=== PATIENT | female | born 1985 | race Caucasian/White ===

== ENCOUNTER → 2022-02-21 | Outpatient (CLI) | payer BC, OTHER ==
[~2022-02-21] MED LIST: AMOXIL500 MG PO; CIPROFLOXACIN500 MG PO; IBU-6600 MG PO; KEFLEX125 MG/5 M PO; LOMOCOT 0.025 M1 TAB PO; LOMOTIL 0.025 M1 TA1 PO; MACROBID100 M1 PO; MEDROL DOSEPAK4 MG PO; MOTRIN800 MG PO; PROVENTIL0.09 MG/AC IH; Phenergan25 MG PO; VICODIN 500 MG-1 TAB PO; ZITHROMAX Z PA250 MG PO; ZOFRAN ODT4 MG SL; ZOFRAN4 MG PO
== END | disposition home or self-care (01) ==
LOC: RAD 10:53
PROVIDERS: ATTEND Nurse Practitioner Family
DX: S99.911A Unspecified injury of right ankle, initial encounter (principal); X58.XXXA Exposure to other specified factors, initial encounter; Y93.89 Activity, other specified; Y92.89 Other specified places as the place of occurrence of the external cause; Y99.8 Other external cause status

== ENCOUNTER 2022-10-20 23:45 | Emergency (ER) | payer BC, OTHER ==
[~2022-10-20] VITALS: Ht 157.4 cm; Wt 97.5 kg
[2022-10-21] MEDS ORDERED: MONTELUKAST SOD10 MG PO
[2022-10-21] MEDS ORDERED: VENTOLIN 02.5 MG/3 M INH (00:01)
[2022-10-21] MEDS ORDERED: SLYND4 MG PO (00:01)
[2022-10-21] MEDS ORDERED: DULERA 100 MCG-13 GM INH (00:01)
[2022-10-21 00:54] LABS: BASO # 0.1 10*3/uL (0.0-0.1); BASO % 0.9 % (0.0-1.0); EOS # 0.3 10*3/uL (0.0-0.4); EOS % 3.1 % (1.0-4.0); HEMATOCRIT 39.4 % (37.0-47.0); LYMPH # 3.4 10*3/uL (1.3-4.4); LYMPH % 33.3 % (27.0-41.0); MEAN CELL VOLUME 75.8 fl (81.0-99.0); MEAN CORPUSCULAR HGB 23.8 pg (27.0-31.0); MEAN CORPUSCULAR HGB CONC 31.5 g/dl (33.0-37.0); MEAN PLATELET VOLUME 9.5 fl (9.6-12.3); MONO # 0.7 10*3/uL (0.1-1.0); MONO % 6.9 % (3.0-9.0); NEUT # 5.6 10*3/uL (2.3-7.9); NEUT % 55.3 % (47.0-73.0); PLATELET COUNT AUTOMATED 353 10*3/uL (130-400); RED CELL DISTRI WIDTH 15.4 % (0-14.5); WHITE BLOOD COUNT 10.1 10*3/uL (4.8-10.8)
[2022-10-21 01:17] LABS: ALKALINE PHOSPHATASE 111 U/L (46-116); BUN 10 mg/dl (9-23); CHLORIDE 105 mmol/L (98-107); POTASSIUM 3.9 mmol/L (3.4-5.1); SGPT/ALT 17 U/L (10-49); TOTAL PROTEIN 7.1 gm/dL (6.0-8.0)
[2022-10-21 02:13] LABS: BILIRUBIN Negative (Negative); BLOOD Trace-Lysed (Negative); CLARITY Clear (Clear); COLOR Yellow (Yellow); GLUCOSE Negative (Negative); KETONE Negative (Negative); LEUKO ESTERASE Trace (Negative); NITRITE Positive (Negative); PH 6.5 (4.5-8.0)
[2022-10-21 02:28] LABS: BACTERIA 1+; EPITHELIAL CELLS 16-20
[2022-10-21] MEDS ORDERED: CEPHALEXIN500 M1 PO (03:46)
== END 2022-10-21 03:50 | disposition home or self-care (01) ==
LOC: ED 23:45
PROVIDERS: Emergency Medicine
DX: N39.0 Urinary tract infection, site not specified (principal); Z88.8 Allergy status to other drugs, medicaments and biological substances; Z79.899 Other long term (current) drug therapy

== ENCOUNTER 2023-06-18 19:15 | Emergency (ER) | payer BC, OTHER ==
[~2023-06-18] VITALS: Ht 157.4 cm; Wt 55.8 kg
[~2023-06-18 19:15] MED LIST changes: +CEPHALEXIN500 M1 PO; +DULERA 100 MCG-13 GM INH; +MONTELUKAST SOD10 MG PO; +SLYND4 MG PO; +VENTOLIN 02.5 MG/3 M INH
[2023-06-18 20:07] LABS: BASO # 0.1 10*3/uL (0.0-0.1); BASO % 0.5 % (0.0-1.0); EOS # 0.3 10*3/uL (0.0-0.4); EOS % 2.5 % (1.0-4.0); HEMATOCRIT 39.4 % (37.0-47.0); LYMPH # 1.1 10*3/uL (1.3-4.4); LYMPH % 10.5 % (27.0-41.0); MEAN CELL VOLUME 76.2 fl (81.0-99.0); MEAN CORPUSCULAR HGB 23.8 pg (27.0-31.0); MEAN CORPUSCULAR HGB CONC 31.2 g/dl (33.0-37.0); MEAN PLATELET VOLUME 9.4 fl (9.6-12.3); MONO # 0.9 10*3/uL (0.1-1.0); MONO % 8.5 % (3.0-9.0); NEUT # 7.7 10*3/uL (2.3-7.9); NEUT % 77.1 % (47.0-73.0); PLATELET COUNT AUTOMATED 300 10*3/uL (130-400); RED BLOOD COUNT 5.17 10*6/uL (4.10-5.10); RED CELL DISTRI WIDTH 15.9 % (0-14.5)
[2023-06-18 20:22] LABS: ALKALINE PHOSPHATASE 117 U/L (46-116); BUN 7 mg/dl (9-23); CHLORIDE 105 mmol/L (98-107); POTASSIUM 3.7 mmol/L (3.4-5.1); SGPT/ALT 22 U/L (10-49); TOTAL PROTEIN 7.7 gm/dL (6.0-8.0)
[2023-06-18] MEDS ORDERED: PREDNISONE50 MG PO (22:19)
== END 2023-06-18 22:56 | disposition home or self-care (01) ==
LOC: ED 19:15
PROVIDERS: Physician Assistant Medical
DX: J45.901 Unspecified asthma with (acute) exacerbation (principal); Z88.8 Allergy status to other drugs, medicaments and biological substances; Z79.2 Long term (current) use of antibiotics; Z79.899 Other long term (current) drug therapy; Z90.49 Acquired absence of other specified parts of digestive tract

== ENCOUNTER 2023-06-22 12:33 | Emergency (ER) | payer BC, OTHER ==
[~2023-06-22] VITALS: Wt 104.3 kg
[~2023-06-22 12:33] MED LIST changes: +PREDNISONE50 MG PO
[2023-06-22] MEDS ORDERED: PREDNISONE10 MG PO (13:19)
== END 2023-06-22 13:25 | disposition home or self-care (01) ==
LOC: ED 12:33
DX: J45.901 Unspecified asthma with (acute) exacerbation (principal); Z88.8 Allergy status to other drugs, medicaments and biological substances; Z87.442 Personal history of urinary calculi; Z98.890 Other specified postprocedural states

== ENCOUNTER 2023-11-24 13:22 | Emergency (ER) | payer BC, OTHER ==
[~2023-11-24] VITALS: Ht 157.4 cm; Wt 103.0 kg
[~2023-11-24 13:22] MED LIST changes: +PREDNISONE10 MG PO
[2023-11-24] MEDS ORDERED: AMOX-CLAV 875-1 EACH PO (15:22)
== END 2023-11-24 16:17 | disposition home or self-care (01) ==
LOC: ED 13:22
DX: J32.9 Chronic sinusitis, unspecified (principal); Z20.822 Contact with and (suspected) exposure to COVID-19; J45.909 Unspecified asthma, uncomplicated; Z87.442 Personal history of urinary calculi; Z88.8 Allergy status to other drugs, medicaments and biological substances; Z98.890 Other specified postprocedural states

== ENCOUNTER 2024-12-03 16:44 | Emergency (ER) | payer BC ==
[~2024-12-03] VITALS: Ht 157.4 cm; Wt 60.8 kg
[~2024-12-03 16:44] MED LIST changes: +AMOX-CLAV 875-1 EACH PO; +CIPRO500 MG PO; +Ondansetron4 MG PO
[2024-12-03] MEDS ORDERED: methylPREDNISolone sod succ 125 MG VIAL IV ONE (17:10)
[2024-12-03] MEDS ORDERED: Albuterol Sulf/Ipratropium 3 ML VIAL NEB ONE (17:10)
[2024-12-03 17:35] LABS: BASO # 0.1 10*3/uL (0.0-0.1); BASO % 0.6 % (0.0-1.0); EOS % 0.1 % (1.0-4.0); HEMATOCRIT 41.7 % (37.0-47.0); MEAN CELL VOLUME 81.9 fl (81.0-99.0); MEAN CORPUSCULAR HGB 25.9 pg (27.0-31.0); MEAN CORPUSCULAR HGB CONC 31.7 g/dl (33.0-37.0); MEAN PLATELET VOLUME 9.8 fl (9.6-12.3); MONO # 1.1 10*3/uL (0.1-1.0); MONO % 12.3 % (3.0-9.0); NEUT # 7.1 10*3/uL (2.3-7.9); NEUT % 81.8 % (47.0-73.0); PLATELET COUNT AUTOMATED 248 10*3/uL (130-400); RED BLOOD COUNT 5.09 10*6/uL (4.10-5.10); RED CELL DISTRI WIDTH 14.6 % (0-14.5); WHITE BLOOD COUNT 8.6 10*3/uL (4.8-10.8)
[2024-12-03 17:46] LABS: ACT PARTIAL THROMBO TIME 29.9 SECONDS (20.0-32.1)
[2024-12-03] MEDS ORDERED: SINGULAIR10 M1 PO (17:51)
[2024-12-03 17:55] LABS: ALKALINE PHOSPHATASE 111 U/L (46-116); BUN 7 mg/dl (9-23); CHLORIDE 101 mmol/L (98-107); POTASSIUM 3.9 mmol/L (3.4-5.1); SGPT/ALT 43 U/L (5-49); TOTAL PROTEIN 7.4 gm/dL (6.0-8.0)
[2024-12-03] MEDS ORDERED: PREDNISONE50 MG PO (18:26)
[2024-12-03] MEDS ORDERED: AVPAK AZITHROM250 M1 PO (18:26)
[2024-12-03] MEDS ORDERED: AZITHROMYCIN 250 MG TAB PO ONE (18:30)
== END 2024-12-03 19:20 | disposition home or self-care (01) ==
LOC: ED 16:44
PROVIDERS: Internal Medicine
DX: J45.909 Unspecified asthma, uncomplicated (principal); Z20.822 Contact with and (suspected) exposure to COVID-19; F17.200 Nicotine dependence, unspecified, uncomplicated; Z88.8 Allergy status to other drugs, medicaments and biological substances; Z90.49 Acquired absence of other specified parts of digestive tract; Z98.890 Other specified postprocedural states

== ENCOUNTER 2025-07-30 21:58 | Emergency (ER) | payer BC ==
[~2025-07-30] VITALS: Ht 157.4 cm; Wt 59.4 kg
[~2025-07-30 21:58] MED LIST changes: +AVPAK AZITHROM250 M1 PO; +SINGULAIR10 M1 PO
[2025-07-30] MEDS ORDERED: Albuterol Sulf/Ipratropium 3 ML VIAL NEB ONE (22:20)
[2025-07-30] MEDS ORDERED: PREDNISONE20 M1 PO (23:59)
== END 2025-07-31 00:07 | disposition home or self-care (01) ==
LOC: ED 21:58
DX: J45.901 Unspecified asthma with (acute) exacerbation (principal); Z88.8 Allergy status to other drugs, medicaments and biological substances; Z79.899 Other long term (current) drug therapy; Z90.49 Acquired absence of other specified parts of digestive tract